=== PATIENT | male | born 2000 | race Caucasian/White ===

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

== ENCOUNTER 2018-05-31 16:21 | Emergency (ER) | payer OTHER ==
[2018-05-31 16:28] VITALS: BP 121/73; PULSE 72; TEMP 98.1; BMI 24.4
--- NOTE | 2018-05-31 17:09 | PDOC ---
History of Present Illness - General Chief Complaint: Nausea/Vomiting Stated Complaint: NAUSEA/VOMITING Time Seen by Provider: 05/31/18 16:51 History Source: Patient Exam Limitations: No Limitations - History of Present Illness Initial Comments: 05/31/18 17:04 Pt is a 17yo M with PMH of Asthma presenting to ED with complaints of n/v/d for the past 3 months. Pt now has insurance which is why he is coming in today. Pt says he feels nauseous, has occasional nbnb vomiting and loose stools daily which he describes as watery. He says he has occasional abdominal pain. He denies testicular pain/swelling, urinary symptoms, fevers, lightheadedness, syncope. He states that a few years ago he had similar symptoms and was diagnosed with Giardia. Denies recent antibiotic use PMD: [place] PMH: asthma PSH: none Meds: None Allergies: nkda Social: occasional alcohol use Past History - Past Medical History Allergies/Adverse Reactions: Allergies Allergy/AdvReac Type Severity Reaction Status Date / Time No Known Allergies Allergy Verified 05/31/18 16:28 Home Medications: Ambulatory Orders NK [No Known Home Medication] 05/31/18 Asthma: Yes COPD: No Diabetes: No - Immunization History Immunization Up to Date: Yes - Suicide/Smoking/Psychosocial Hx Smoking Status: No Smoking History: Never smoked Have you smoked in the past 12 months: No Number of Cigarettes Smoked Daily: 0 Information on smoking cessation initiated: No Hx Alcohol Use: No Drug/Substance Use Hx: No Review of Systems - Review of Systems Constitutional: Yes: Unintentional Wgt. Loss (6-7lb past 3 months). No: Chills , Fever HEENTM: No: Symptoms Reported Respiratory: No: Symptoms reported ABD/GI: Yes: See HPI, Diarrhea, Nausea, Vomiting, Abdominal cramping (diffuse abdominal pain). No: Constipated, Rectal Bleeding Musculoskeletal: No: Back Pain, Joint Pain Integumentary: No: Symptoms Reported Neurological: No: Symptoms reported *Physical Exam - Vital Signs Last Vital Signs Temp Pulse Resp BP Pulse Ox 98.1 F 72 16 121/73 100 05/31/18 16:26 05/31/18 16:26 05/31/18 16:26 05/31/18 16:26 05/31/18 16:26 - Physical Exam General Appearance: Yes: Nourished, Appropriately Dressed, Other (resting comfortably in vertical room chair). No: Apparent Distress HEENT: positive: EOMI, EDUARD Neck: positive: Trachea midline, Supple Respiratory/Chest: positive: Lungs Clear, Normal Breath Sounds. negative: Crackles, Rales, Rhonchi, Stridor, Wheezing Cardiovascular: positive: Regular Rhythm, Regular Rate, S1, S2. negative: Edema , JVD, Murmur Vascular Pulses: Carotid (R): 2+, Carotid (L): 2+, Dorsalis-Pedis (R): 2+, Doralis-Pedis (L): 2+ Gastrointestinal/Abdominal: positive: Normal Bowel Sounds, Soft, Tenderness ( diffuse tenderness). negative: Rebound, Hernia, Mass Musculoskeletal: negative: CVA Tenderness Extremity: positive: Normal Capillary Refill. 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 NML intact, Fully Oriented, Alert, Normal Mood/ Affect, Normal Response, Motor Strength 5/5 Moderate Sedation - Procedure Monitoring Vital Signs: Procedure Monitoring Vital Signs Temperature 98.1 F 05/31/18 16:26 Pulse Rate 72 05/31/18 16:26 Respiratory Rate 16 05/31/18 16:26 Blood Pressure 121/73 05/31/18 16:26 O2 Sat by Pulse Oximetry (%) 100 05/31/18 16:26 ED Treatment Course - LABORATORY CBC & Chemistry Diagram: 05/31/18 17:48 05/31/18 17:35 Medical Decision Making - Medical Decision Making 05/31/18 17:08 Pt is a 17yo M with PMH of Asthma presenting to ED with complaints of n/v/d for the past 3 months. Pt now has insurance which is why he is coming in today. Pt says he feels nauseous, has occasional nbnb vomiting and loose stools daily which he describes as watery. He says he has occasional abdominal pain. He denies testicular pain/swelling, urinary symptoms, fevers, lightheadedness, syncope. He states that a few years ago he had similar symptoms and was diagnosed with Giardia. Denies recent antibiotic use Vitals: wnl PE: diffuse abdominal tenderness ddx: colitis, pancreatitis, cholecystitis, pyelo, nephrolithiasis, aaa, dissection, IBD, IBS -Symptoms present for 3 months. low suspicion for acute oscar or appendicitis. Will order basic labs, lipase. IVF and Zofran. Will reevaluate. Will also give referral to GI. 05/31/18 17:53 All labs wnl. Pt is hemodynamically stable. Has had symptoms for 3 months. Low suspcidon for acute process. Given referral to GI. Pt agrees with plan. DC home *DC/Admit/Observation/Transfer Diagnosis at time of Disposition: Diarrhea Qualifiers: Diarrhea type: unspecified type Qualified Code(s): R19.7 - Diarrhea, unspecified Nausea & vomiting Qualifiers: Vomiting type: unspecified Vomiting Intractability: non-intractable Qualified Code(s): R11.2 - Nausea with vomiting, unspecified - Discharge Dispostion Disposition: HOME Condition at time of disposition: Improved Decision to Admit order: No - Referrals Referrals: Ashley Lee [Primary Care Provider] - Rosas Pedroza DO [Staff Physician] - - Patient Instructions Printed Discharge Instructions: Diarrhea, DI for Nausea -- Adult, DI for Vomiting -- Adult Additional Instructions: You were seen here today for nausea and diarrhea. Your tests were normal. I highly recommend you see a assembler truck trailer for further evaluation and management of your symptoms. You might need a referral from your primary care doctor. A GI doctor affiliated with this hospital is Dr. Pedroza [phone]. Come back to the emergency room if your pain gets worse, you start vomiting blood, you have blood in the stool, you pass out, you develop fever or if any new concerning symptom develops. Thank you - Post Discharge Activity
[2018-05-31] MEDS ORDERED: ONDANSETRON 4 MG/2 ML VIAL IVPB ONE (17:11)
[2018-05-31] MEDS ORDERED: SODIUM CHLORIDE 1,000 ML IV STA (17:11)
[2018-05-31] MEDS ORDERED: ONDANSETRON 4 MG/2 ML VIAL ONE (17:35)
[2018-05-31 18:09] LABS: BASO % 0.3 % (0-2.0); EOS % 1.2 % (0-4.5); HEMATOCRIT 48.2 % (35.4-49); HEMOGLOBIN 17.2 GM/dL (11.7-16.9); LYMPH % 35.3 % (8-40); MCH 31.6 pg (25.7-33.7); MCHC 35.7 g/dl (32.0-35.9); MEAN CELL VOLUME 88.6 fl (80-96); MEAN PLT VOLUME 8.8 fl (7.5-11.1); MONO % 5.8 % (3.8-10.2); NEUT % 57.4 % (42.8-82.8); PLATELET COUNT 169 K/MM3 (134-434); RBC 5.44 M/mm3 (4.00-5.60); RDW 12.9 % (11.9-15.9)
--- NOTE | 2018-05-31 18:10 | PDOC ---
Attending Attestation - Resident Resident Name: Evelyn Argueta - ED Attending Attestation I have performed the following: I have examined & evaluated the patient, The case was reviewed & discussed with the resident, I agree w/resident's findings & plan, Exceptions are as noted - HPI HPI: 05/31/18 18:10 17 yo male has had 3 months of loose stools and recently obtained health insurance so he wants to be checked out - Physicial Exam PE: 05/31/18 18:10 wnwd 17 yo male in no acute distress head ncat neck supple lungs cta b/l cvs [id number] abd no rebound, no guarding no cva tenderenss ext no edema skin warm and dry neuro axox3,ambulatory - Medical Decision Making 05/31/18 18:13 plan cbc,comp,UA diff diag included,IBS,diverticulitis,colitis,viral syndrome 05/31/18 23:03 pt has been symptom free during his ED visit labs are wnl, benign abdominal exam pt referred to GI for further eval imp intermittent abdominal cramping /IBS plan GI followup
[2018-05-31 18:37] LABS: ALBUMIN 4.2 g/dl (3.4-5.0); ALK PHOS 86 U/L (45-117); ANION GAP 7 MMOL/L (8-16); BLOOD UREA NITROGEN 15 mg/dL (7-18); CALCIUM 8.9 mg/dL (8.5-10.1); CHLORIDE 106 mmol/L (98-107); CO2 28 mmol/L (21-32); CREATININE 0.8 mg/dL (0.55-1.3); GLUCOSE,RANDOM 89 mg/dL (74-106); POTASSIUM 3.9 mmol/L (3.5-5.1); SGOT/AST 23 U/L (15-37); SGPT/ALT 31 U/L (13-61); SODIUM 140 mmol/L (136-145); TOT PROT 7.6 g/dl (6.4-8.2)
== END 2018-05-31 18:57 | disposition home or self-care (01) ==
LOC: JER 16:21
PROC: 3E033GC Introduction of Other Therapeutic Substance into Peripheral Vein, Percutaneous Approach (ICD-10-PCS; principal; 2018-05-31)
PROC: 3E0337Z Introduction of Electrolytic and Water Balance Substance into Peripheral Vein, Percutaneous Approach (ICD-10-PCS; 2018-05-31)
DX: R11.2 Nausea with vomiting, unspecified (principal); R19.7 Diarrhea, unspecified; J45.909 Unspecified asthma, uncomplicated
CPT/HCPCS: 36415; 80053; 83690; 85025; 96361; 96374; 99283-25; J7030

== ENCOUNTER 2018-08-25 10:38 | Day surgery (SDC) | payer OTHER ==
[2018-08-24 16:03] VITALS: BMI 25.7
[2018-08-25 12:25] VITALS: TEMP 97.6
[2018-08-25 13:25] VITALS: BP 107/76; PULSE 64
--- NOTE | 2018-08-26 16:42 | PATH ---
Surgical Pathology Report Patient Name: FABIANO GUZMAN [facility]. Rec. #: [id number] /Age/Gender: 2000 (Age: 17) / M Account: [id number] Location: U-ENDOSCOPY Taken: 08/25/2018 Received: 08/25/2018 Reported: 08/26/2018 Physicians: Kaiser Pedroza D.O. Specimen(s) Received A: BX DUODENUM B: BX ANGULARIS AND BODY C: POLYP GASTRIC ESOPHAGEAL JUNCTION Clinical History Nausea and vomiting Postoperative diagnosis: Polyp GE junction Final Diagnosis A. DUODENUM, BIOPSY: DUODENAL MUCOSA WITH NO DIAGNOSTIC ABNORMALITIES. NO HISTOLOGIC EVIDENCE OF CELIAC DISEASE. B. ANGULARIS AND BODY, BIOPSY: GASTRIC MUCOSA WITH MILD CHRONIC GASTRITIS. IMMUNOSTAIN FOR H. PYLORI IS NEGATIVE. NEGATIVE FOR INTESTINAL METAPLASIA. C. POLYP, GASTRIC ESOPHAGEAL JUNCTION, BIOPSY: HYPERPLASTIC POLYP. IMMUNOSTAIN FOR H. PYLORI IS NEGATIVE. NEGATIVE FOR INTESTINAL METAPLASIA. Electronically Signed Scotty Mae M.D. Gross Description A. Received in formalin, labeled "biopsy duodenum" are 3 norman, irregular portions of soft tissue ranging from 0.1-0.3 cm. in greatest dimension. The specimens are submitted in toto in one cassette. B. Received in formalin, labeled "biopsy angularis and body" are 4 norman, irregular portions of soft tissue ranging from 0.1-0.5 cm. in greatest dimension. The specimens are submitted in toto in one cassette. C. Received in formalin, labeled "biopsy polyp GE junction" are 4 norman, irregular portions of soft tissue ranging from 0.4-0.6 cm. in greatest dimension. The specimens are submitted in toto in one cassette. 08/25/2018 [facility]08/25/2018
== END 2018-08-25 13:26 | disposition home or self-care (01) ==
LOC: JASU-ENDO 10:38
PROVIDERS: ATTEND Internal Medicine Gastroenterology
PROC: 0DB68ZX Excision of Stomach, Via Natural or Artificial Opening Endoscopic, Diagnostic (ICD-10-PCS; 2018-08-25)
PROC: 0DB48ZX Excision of Esophagogastric Junction, Via Natural or Artificial Opening Endoscopic, Diagnostic (ICD-10-PCS; 2018-08-25)
PROC: 0DB98ZX Excision of Duodenum, Via Natural or Artificial Opening Endoscopic, Diagnostic (ICD-10-PCS; principal; 2018-08-25 11:00)
DX: K21.0 Gastro-esophageal reflux disease with esophagitis (principal); K31.7 Polyp of stomach and duodenum
CPT/HCPCS: 88305-TC

== ENCOUNTER 2024-08-31 16:06 | Observation (INO) | payer BC, OTHER ==
[2024-08-31 16:20] VITALS: BMI 28.8
[2024-08-31] MEDS ORDERED: ACETAMINOPHEN INJECTION 100 ML ONE (18:27)
[2024-08-31] MEDS ORDERED: ONDANSETRON 4 MG/2 ML VIAL ONE (18:28)
[2024-08-31] MEDS: SODIUM CHLORIDE 0.9% 500 ML INFUS.BAG IV ONE (18:39)
[2024-08-31] MEDS: ACETAMINOPHEN 1000 MG/100 ML BAG IVPB ONE (18:40)
[2024-08-31] MEDS: ONDANSETRON 4 MG/2 ML VIAL IVPUSH ONE (18:40)
[2024-08-31 18:44] LABS: BASO % 0.2 % (0-2.0); EOS % 0.1 % (0-4.5); HEMATOCRIT 49.5 % (35.4-49); LYMPH % 10.6 % (8-40); MCH 30.4 pg (25.7-33.7); MCHC 34.3 g/dl (32.0-35.9); MEAN CELL VOLUME 88.6 fl (80-96); MONO % 7.2 % (3.8-10.2); NEUT % 81.9 % (42.8-82.8); PLATELET COUNT 177 10^3/uL (134-434); RBC 5.59 M/mm3 (4.00-5.60); RDW 12.8 % (11.9-15.9)
[2024-08-31 19:06] LABS: POTASSIUM 3.8 mmol/L (3.5-5.1)
[2024-08-31 19:08] LABS: ALBUMIN 4.3 g/dl (3.4-5.0); CALCIUM 9.6 mg/dL (8.5-10.1)
[2024-08-31 19:11] LABS: CREATININE 0.9 mg/dL (0.55-1.3)
[2024-08-31 19:13] LABS: BILIRUBIN,TOTAL 1.2 mg/dL (0.2-1); TOT PROT 7.8 g/dl (6.4-8.2)
[2024-08-31 20:02] LABS: HIV INTERPRETATION NEGATIVE (NEGATIVE)
[2024-08-31 20:04] LABS: PH,URINE 6.5 (5.0-8.0); URINE APPEARANCE CLEAR; URINE BILIRUBIN NEGATIVE (NEGATIVE); URINE COLOR YELLOW; URINE GLUCOSE (UA) NEGATIVE (NEGATIVE); URINE KETONE NEGATIVE (NEGATIVE); URINE LEUK ESTERASE NEGATIVE (NEGATIVE); URINE NITRITE NEGATIVE (NEGATIVE); URINE PROTEIN NEGATIVE (NEGATIVE); URINE UROBILINOGEN 0.2 mg/dL (0.2-1.0)
[2024-08-31] MEDS ORDERED: MORPHINE SULFATE 2 MG/ML SYRINGE ONE (20:45)
[2024-08-31] MEDS: morphine CARPU-JECT 2 MG/1 ML DISP.SYRIN IVPUSH ONE (20:47)
[2024-09-01] MEDS ORDERED: MORPHINE SULFATE 2 MG/ML SYRINGE IVPUSH PRN (00:46)
[2024-09-01] MEDS ORDERED: METOCLOPRAMIDE HCL INJECTION 10 MG/2 ML VIAL ONE ×2 (00:46→12:15)
[2024-09-01] MEDS: METOCLOPRAMIDE HCL INJECTION 10 MG/2 ML VIAL IVPB ONE (00:55)
[2024-09-01] MEDS: SODIUM CHLORIDE 0.9% 500 ML INFUS.BAG IV ONE (00:55)
[2024-09-01] MEDS: ACETAMINOPHEN 1000 MG/100 ML BAG IVPB SCH (00:56)
[2024-09-01] MEDS ORDERED: ONDANSETRON 4 MG/2 ML VIAL IVPUSH PRN ×2 (02:01→14:05)
[2024-09-01] MEDS: CEFOXITIN SODIUM 2 GM in DEXTROSE 5%-WATER - 100 ML IVPB ONE (02:06)
[2024-09-01 04:14] LABS: INR 1.39 (0.83-1.09); PROTHROMBIN TIME (PATIENT) 15.2 SEC (9.7-13.0)
[2024-09-01 04:17] LABS: ACTIVATED PTT 34.7 SECONDS (25.2-36.5)
[2024-09-01] MEDS ORDERED: IBUPROFEN 600 MG TABLET (FP) PO PRN ×3 (04:46→14:05)
[2024-09-01 09:08] LABS: BASO % 0.1 % (0-2.0); EOS % 0.2 % (0-4.5); HEMATOCRIT 43.4 % (35.4-49); HEMOGLOBIN 14.8 GM/dL (11.7-16.9); MCH 30.4 pg (25.7-33.7); MCHC 34.1 g/dl (32.0-35.9); MEAN CELL VOLUME 89.2 fl (80-96); MEAN PLT VOLUME 9.3 fl (7.5-11.1); MONO % 6.6 % (3.8-10.2); NEUT % 81.1 % (42.8-82.8); PLATELET COUNT 149 10^3/uL (134-434); RBC 4.87 M/mm3 (4.00-5.60); RDW 12.7 % (11.9-15.9); WHITE BLOOD COUNT 10.7 K/mm3 (4.0-10.0)
[2024-09-01 09:30] LABS: POTASSIUM 3.4 mmol/L (3.5-5.1)
[2024-09-01 09:32] LABS: CALCIUM 8.4 mg/dL (8.5-10.1)
[2024-09-01 09:33] LABS: ALBUMIN 3.5 g/dl (3.4-5.0); BLOOD UREA NITROGEN 8.4 mg/dL (7-18); MAGNESIUM 1.6 mg/dL (1.8-2.4)
[2024-09-01 09:36] LABS: CREATININE 0.9 mg/dL (0.55-1.3); PHOSPHOROUS 2.5 mg/dL (2.5-4.9)
[2024-09-01 09:37] LABS: TOT PROT 6.6 g/dl (6.4-8.2)
[2024-09-01] MEDS: ATOMOXETINE HCL 40 MG CAPSULE PO SCH (09:58)
[2024-09-01] MEDS: PANTOPRAZOLE 40 MG TABLET PO SCH (09:58)
[2024-09-01] MEDS: SODIUM CHLORIDE 1,000 ML IV SCH (10:54)
[2024-09-01] MEDS: NICOTINE 7 MG/24 HOURS TOPICAL PATCH TD SCH (11:48)
[2024-09-01] MEDS ORDERED: cefOXitin SODIUM 2 GM VIAL (RESTRICTED TO ID) IVPB ONE (11:55)
[2024-09-01] MEDS ORDERED: HEPARIN NA (PORCINE) 5,000 UNITS/ML 1ML VIAL ONE (11:55)
[2024-09-01] MEDS ORDERED: BUPIVACAINE HCL/PF 0.25% (2.5MG/ML) 10 ML VIAL ONE (11:55)
[2024-09-01] MEDS ORDERED: PROMETHAZINE HCL 25 MG/1 ML VIAL IVPB PRN ×2 (12:10→14:05)
[2024-09-01] MEDS ORDERED: LIDOCAINE HCL/PF 2% SDV 5ML VIAL ONE ×2 (12:14→12:15)
[2024-09-01] MEDS ORDERED: MIDAZOLAM HCL 2 MG/2 ML SINGLE DOSE VIAL ONE (12:14)
[2024-09-01] MEDS ORDERED: PROPOFOL 20 ML ONE ×2 (12:14→13:13)
[2024-09-01] MEDS ORDERED: LACTATED RINGERS SOLUTION 1,000 ML IV SCH ×2 (12:15→14:05)
[2024-09-01] MEDS ORDERED: DEXAMETHASONE SOD PHOSPHATE 4 MG/1 ML VIAL ONE (12:15)
[2024-09-01] MEDS ORDERED: KETOROLAC TROMETHAMINE 30 MG/1 ML VIAL ONE (12:15)
[2024-09-01] MEDS ORDERED: ONDANSETRON 4 MG/2 ML VIAL ONE (12:15)
[2024-09-01] MEDS ORDERED: ACETAMINOPHEN INJECTION 100 ML ONE (12:16)
[2024-09-01] MEDS ORDERED: ROCURONIUM BROMIDE 50 MG/5 ML SYRINGE ONE (12:42)
[2024-09-01] MEDS: cefOXitin SODIUM 2 GM VIAL (RESTRICTED TO ID) IVPB ONE (12:57)
[2024-09-01] MEDS: BUPIVACAINE HCL/PF 0.25% (2.5MG/ML) 10 ML VIAL IJ ONE (12:59)
[2024-09-01] MEDS ORDERED: SUGAMMADEX SODIUM 200 MG/2 ML VIAL ONE (13:11)
[2024-09-01] MEDS ORDERED: HYDROmorphone HCl 2 MG/ML VIAL ONE (13:17)
[2024-09-01] MEDS: POTASSIUM CHLORIDE TABS 20 MEQ TABLET.ER (FP) PO ONE (17:11)
[2024-09-01 18:17] VITALS: BP 117/78; PULSE 90; RESP 19; TEMP 99.3
[2024-09-01] MEDS: oxyCODONE HCL 5 MG TABLET PO PRN (18:40)
[2024-09-01] MEDS ORDERED: ACETAMINOPHEN 1000 MG/100 ML BAG IVPB SCH (18:45)
[2024-09-02] MEDS ORDERED: NICOTINE 7 MG/24 HOURS TOPICAL PATCH TD SCH (10:00)
[2024-09-02] MEDS ORDERED: ATOMOXETINE HCL 40 MG CAPSULE PO SCH (10:00)
[2024-09-02] MEDS ORDERED: PANTOPRAZOLE 40 MG TABLET PO SCH (10:00)
[2024-09-02] MEDS ORDERED: CEFTRIAXONE 2 GM-D5W BAG 2 GM/50 ML BAG IVPB SCH ×2 (10:00)
== END 2024-09-01 19:19 | disposition home or self-care (01) ==
LOC: JER 16:06 → INTOOBSV 09-01 00:28 → JERBED 09-01 00:28 → J5S 09-01 03:04
PROVIDERS: ADMIT Student in an Organized Health Care Education/Training Program
PROC: 3E033NZ Introduction of Analgesics, Hypnotics, Sedatives into Peripheral Vein, Percutaneous Approach (ICD-10-PCS; 2024-09-01)
PROC: 3E03329 Introduction of Other Anti-infective into Peripheral Vein, Percutaneous Approach (ICD-10-PCS; 2024-09-01)
PROC: 3E033GC Introduction of Other Therapeutic Substance into Peripheral Vein, Percutaneous Approach (ICD-10-PCS; 2024-09-01)
PROC: 3E0337Z Introduction of Electrolytic and Water Balance Substance into Peripheral Vein, Percutaneous Approach (ICD-10-PCS; 2024-09-01)
PROC: 0DTJ4ZZ Resection of Appendix, Percutaneous Endoscopic Approach (ICD-10-PCS; principal; 2024-09-01 12:00)
DX: K35.80 Unspecified acute appendicitis (principal); K58.9 Irritable bowel syndrome, unspecified; D72.829 Elevated white blood cell count, unspecified; K76.0 Fatty (change of) liver, not elsewhere classified; F17.290 Nicotine dependence, other tobacco product, uncomplicated
CPT/HCPCS: 0241U-QW; 36415; 74177-TC; 80053; 81003; 82248; 83605; 83690; 83735; 84100; 85025; 85610; 85730; 86803; 86850; 86900; 86901; 87040; 87070; 87086; 87186; 87205; 87389; 88304-TC; 93005; 93010; 94010; 94760; 96365; 96367; 96375; 99285-25; G0378; J0131; J1644; Q9967